=== PATIENT | male | born 2000 | race Caucasian/White ===

== ENCOUNTER 2022-12-01 01:15 | Emergency (ER) | payer SELFPAY ==
[~2022-12-01] VITALS: Ht 180.3 cm; Wt 68.0 kg
[2022-12-01 01:26] VITALS: BP 116/70; PULSE 85; RESP 16; TEMP 97.4; O2SAT 97
[2022-12-01 01:34] VITALS: BP 116/70; PULSE 85; RESP 16; TEMP 36.33624; O2SAT 97
== END 2022-12-01 01:34 ==
LOC: MED 01:15
DX: V49.88XA Car occupant (driver) (passenger) injured in other specified transport accidents, initial encounter; Y93.89 Activity, other specified; Y92.89 Other specified places as the place of occurrence of the external cause; Y99.8 Other external cause status
CPT/HCPCS: 99283